=== PATIENT | male | born 1995 | race Caucasian/White ===

== ENCOUNTER → 2021-05-08 08:06 | Outpatient (BNVA) | payer OTHER, SELFPAY | PROVIDERS: Visit Provider Physician Assistant | DX: M22.2X2 Patellofemoral disorders, left knee (principal); M17.12 Unilateral primary osteoarthritis, left knee; M23.92 Unspecified internal derangement of left knee | CPT/HCPCS: 99202 ==

== ENCOUNTER 2021-05-16 11:02 | Outpatient (REF) | payer OTHER, SELFPAY ==
--- NOTE | ~2021-05-16 | MR_ITS ---
EXAMINATION: MR KNEE WITHOUT CONTRAST, LEFT CLINICAL INFORMATION: Unilateral primary osteoarthritis, left knee. Patient reports left knee pain, burning sensation, swelling, symptoms for 16 years, progressively getting worse, no recent injury, and no previous surgery. COMPARISON: None. TECHNIQUE: MRI of the knee without contrast was performed using routine sequences on a high-field scanner. FINDINGS: MENISCI: Medial Meniscus: Intact. Lateral Meniscus: Intact. LIGAMENTS: Cruciate: Intact. Collateral: Intact. EXTENSOR MECHANISM: Intact. ARTICULAR CARTILAGE/BONE: Patellofemoral Compartment: Normal. Medial Compartment: Normal. Lateral Compartment: Normal. JOINT FLUID AND BURSAE: Normal. MR/MR knee LT wo con IMPRESSION: Unremarkable MRI of the left knee with no evidence of internal derangement.
== END 2021-05-16 11:03 | disposition home or self-care (01) ==
LOC: HO.MRI 11:02
PROVIDERS: Visit Provider Physician Assistant
DX: M17.12 Unilateral primary osteoarthritis, left knee (principal)
CPT/HCPCS: 73721

== ENCOUNTER 2021-05-21 10:31 | Outpatient (RCR) | payer OTHER, SELFPAY ==
--- NOTE | 2021-05-21 12:22 | MHC.PT.EP ---
[facility] [place] Office [place] Office [place] Office [address] Demetri Bernard [address] [phone] F: [phone] F: [phone] F: [phone] F: [phone] Physical Therapy Plan of Care Date of Evaluation: Date of Surgery: Diagnosis: left knee pain Assessment: 25 y/o M referred for left knee pain. Pt complains of L knee pain increasing over last 3 months with an increase in L knee/leg swelling with occasional clicking/locking. MRI of L knee on 05/16/21 awaiting results. Pt has difficulty standing for prolonged periods of time, kneeling, walking, and lifting. Examination shows increased swelling just distal to medial L knee g, TTP medial L knee joint line/ HS/ pes anserine, decreased hip strength L>R, and decreased HS length L>R. He also demonstrated fatigue with SLR following 3 reps. Lumbar spine to be assessed next visit to assess for lumbar involvement. Recommend PT 2x/week for 5x weeks to address impairments, implement HEP, and optimize functional mobility. Frequency and Duration: The patient will be seen 2x/week for 5 weeks Short Term Goals: 2 weeks: 1. I with HEP 2. Increase L hip abd strength by 1 MMT score 3. Increase HS length by >10 degrees Longterm Goals: 5 weeks: 1. I with HEP and self-management of sx 2. Pt will be able to stand >1 hour with <3/10 pain 3. Pt will be able to lift >50# with <3/10 pain Treatment Plan: Modalities to reduce pain, spasms and effusion. Manual therapy to restore motion and function. Therapeutic exercise to improve strength and flexibility. Neuromuscular re-education for posture and balance. Therapeutic activities to return to functional activities of daily living. Electronically signed by: Teresa Whitmore PT Please sign and return to therapist. Thank you for your referral.
--- NOTE | 2021-06-05 10:39 | MHC.PT.DC ---
[facility] [place] Office [place] Office [place] Office [address] Demetri Bernard [address] [phone] F: [phone] F: [phone] F: [phone] F: [phone] Physical Therapy Discharge Report Diagnosis: left knee pain Date of Surgery: Date of Evaluation: 05/21/21 Date of Discharge: 06/05/21 Treatments to Date: 1 Cancellations to Date: 1 No Shows to Date: 3 Discharge Status: Visit Non-compliance Discharge Summary: Pt did not f/u with further visits following initial evaluation. D/c due to noncompliance with scheduling policy. Electronically signed by: Teresa Whitmore PT Please sign and return to therapist. Thank you for your referral.
== END 2021-06-05 10:40 | disposition home or self-care (01) ==
LOC: HO.PT 10:31
PROVIDERS: Visit Provider Orthopaedic Surgery
DX: M22.2X9 Patellofemoral disorders, unspecified knee (principal); M23.92 Unspecified internal derangement of left knee
CPT/HCPCS: 97110; 97161